=== PATIENT | male | born 2000 ===

== ENCOUNTER 2022-05-01 10:30 | Emergency (ER) | payer OTHER, BC | END 2022-05-01 11:08 | disposition home or self-care (01) | LOC: ERS 10:30 | DX: S93.602A Unspecified sprain of left foot, initial encounter (principal); S80.12XA Contusion of left lower leg, initial encounter; F17.290 Nicotine dependence, other tobacco product, uncomplicated; W18.30XA Fall on same level, unspecified, initial encounter; Y92.39 Other specified sports and athletic area as the place of occurrence of the external cause ==